=== PATIENT | female | born 1950 | race Two or more races ===

== ENCOUNTER 2022-09-23 21:32 | Inpatient (IN) | payer OTHER ==
[~2022-09-23] VITALS: Ht 162.6 cm; Wt 85.0 kg
[2022-09-23 22:36] LABS: Lactic Acid w/Reflex 3.6 mmol/L (0.4-2.0)
[2022-09-23 22:40] LABS: Basophils # (auto) 0.1 10 ^3/uL (0-0.2); Basophils % (auto) 0.5 % (0.0-2.0); Eosinophils # (auto) 0 10 ^3/uL (0-0.8); Eosinophils % (auto) 0.1 % (0.0-7.0); Hematocrit 47.6 % (36.0-46.0); Hemoglobin 15.3 g/dL (12.2-16.2); Lymphocytes # (auto) 1.2 10 ^3/uL (0.4-5.4); Lymphocytes % (auto) 7.8 % (10.0-50.0); Mean Corpuscular Hemoglobin 31.4 pg (28.0-32.0); Mean Corpuscular Hgb Conc. 32.1 g/dL (32.0-36.0); Monocytes # (auto) 0.9 10 ^3/uL (0-1.3); Monocytes % (auto) 5.6 % (0.0-12.0); Neutrophils # (auto) 13.1 10 ^3/uL (1.6-8.6); Nucleated Red Blood Cells % 0.1 %; Red Blood Cells 4.85 10^6/uL (4.0-5.20); Red Cell Distribution Width 15.4 % (11.8-14.3); White Blood Cell 15.2 10^3/uL (4.4-10.8)
[2022-09-23 22:41] LABS: Albumin 3.8 g/dL (3.4-5.0); Calcium 8.7 mg/dL (8.5-10.1)
[2022-09-23 22:44] LABS: Bilirubin, Total 0.5 mg/dL (0.2-1.0); Total Protein 8.1 g/dL (6.4-8.2)
[2022-09-23 22:50] VITALS: PULSE 74; RESP 16; O2SAT 95
[2022-09-23] MEDS ORDERED: PIPERACILLIN-TAZOB 2.25GM 50 ML IV ONE (23:15)
[2022-09-23] MEDS ORDERED: SODIUM CHLORIDE 0.9% 1,000 ML IV ONE (23:15)
[2022-09-23 23:33] LABS: Calcium 8.8 mg/dL (8.5-10.1)
[2022-09-23 23:37] LABS: Potassium 5.8 mmol/L (3.5-5.1)
[2022-09-23] MEDS: SODIUM CHLORIDE 0.9% 1,000 ML IV SCH (23:45)
[2022-09-24] MEDS ORDERED: ALBUTEROL SULF 2.5 MG/0.5ML(0.5%) NEB SOLN NEB ONE
[2022-09-24] MEDS ORDERED: DEXTROSE (50%) 50ML SYRG IV ONE
[2022-09-24] MEDS ORDERED: InsuLIN REG 1unit/0.01ml Soln (100units/ml) IV ONE
[2022-09-24] MEDS ORDERED: ONDANSETRON HCL 4 MG/2 ML VIAL IV PRN (00:45)
[2022-09-24] MEDS ORDERED: MORPHINE SULFATE INJ 2 MG/ml SYRG IV PRN (00:45)
[2022-09-24] MEDS ORDERED: SODIUM ZIRCONIUM CYCL 10 GM PAK PO ONE (00:45)
[2022-09-24] MEDS ORDERED: SODIUM CHLORIDE 0.9% 1,000 ML IV ONE (00:45)
[2022-09-24] MEDS ORDERED: NITROGLYCERIN 0.4 MG SL TAB SL PRN (00:45)
[2022-09-24] MEDS ORDERED: cefTRIAXone 1GM/50ML D5W 50 ML IV ONE (00:45)
[2022-09-24 01:31] LABS: Urine Amorphous Crystal MOD /hpf (None Seen); Urine Bacteria NONE SEEN /hpf (None Seen); Urine Blood 1+ /uL (Negative); Urine Mucus FEW (None Seen); Urine Specific Gravity 1.017 (1.001-1.035); Urine WBC 842 /hpf (0 - 5); Urine WBC Clumps PRESENT /hpf (None Seen)
[2022-09-24 02:06] LABS: Alcohol, Urine < 3.0 mg/dL (0-10); Benzodiazephine Screen, Urine NEGATIVE (NEGATIVE); Cocaine Screen, Urine NEGATIVE (NEGATIVE)
[2022-09-24 02:08] LABS: Amphetamine Screen, Urine NEGATIVE (NEGATIVE); Barbiturate Scree,Urine NEGATIVE (NEGATIVE); Cannabinoid Screen, Urine NEGATIVE (NEGATIVE); Opiate Scree,Urine NEGATIVE (NEGATIVE); Phencyclidine Screen, Urine NEGATIVE (NEGATIVE)
[2022-09-24] MEDS ORDERED: FUROSEMIDE 20 MG/2 ML VIAL IV ONE (05:00)
[2022-09-24 06:56] LABS: Basophils # (auto) 0.1 10 ^3/uL (0-0.2); Basophils % (auto) 0.6 % (0.0-2.0); Eosinophils # (auto) 0 10 ^3/uL (0-0.8); Hematocrit 46.5 % (36.0-46.0); Hemoglobin 14.7 g/dL (12.2-16.2); Lymphocytes # (auto) 1.5 10 ^3/uL (0.4-5.4); Lymphocytes % (auto) 9.5 % (10.0-50.0); Mean Corpuscular Hemoglobin 31.2 pg (28.0-32.0); Mean Corpuscular Hgb Conc. 31.6 g/dL (32.0-36.0); Mean Corpuscular Volume 98.7 fL (80.0-100.0); Monocytes # (auto) 0.8 10 ^3/uL (0-1.3); Monocytes % (auto) 5.3 % (0.0-12.0); Neutrophils % (auto) 84.6 % (37.0-80.0); Nucleated Red Blood Cells % 0.1 %; Red Blood Cells 4.71 10^6/uL (4.0-5.20); Red Cell Distribution Width 15.7 % (11.8-14.3); White Blood Cell 15.3 10^3/uL (4.4-10.8)
[2022-09-24 07:30] LABS: Albumin 3.5 g/dL (3.4-5.0); Calcium 7.8 mg/dL (8.5-10.1); Potassium 5.1 mmol/L (3.5-5.1)
[2022-09-24 07:35] LABS: Bilirubin, Total 0.4 mg/dL (0.2-1.0); Total Protein 7.5 g/dL (6.4-8.2)
[2022-09-24 07:40] LABS: BUN/Creatinine Ratio 15.3 (10.0-20.0)
[2022-09-24] MEDS: SODIUM CHLORIDE 0.9% 1,000 ML IV SCH ×2 (07:49→14:15)
[2022-09-24 08:30] VITALS: PULSE 84; RESP 14; O2SAT 92
[2022-09-24] MEDS: cefTRIAXone 1GM/50ML D5W 50 ML IV SCH (09:10)
[2022-09-24] MEDS ORDERED: PANTOPRAZOLE 40 MG TAB PO SCH (10:00)
[2022-09-24 19:29] VITALS: PULSE 88; RESP 16; O2SAT 95
[2022-09-24 21:14] VITALS: PULSE 90
[2022-09-24 22:21] VITALS: BP 127/54; PULSE 90; RESP 21; TEMP 99.4; O2SAT 94
[2022-09-25] MEDS: SODIUM CHLORIDE 0.9% 1,000 ML IV SCH (03:30)
[2022-09-25 05:00] VITALS: BP 94/46; PULSE 93; RESP 16; TEMP 98.5; O2SAT 95
[2022-09-25 06:55] LABS: BUN/Creatinine Ratio 25.9 (10.0-20.0); Calcium 8.2 mg/dL (8.5-10.1); Potassium 4.4 mmol/L (3.5-5.1)
[2022-09-25] MEDS ORDERED: VENL1TAB99 PO (07:03)
[2022-09-25] MEDS ORDERED: DICL75TA3 PO (07:03)
[2022-09-25] MEDS ORDERED: LISI-275 PO (07:03)
[2022-09-25 08:00] VITALS: BP 118/73; PULSE 60; PULSE 74; PULSE 85; RESP 17; TEMP 97.6
[2022-09-25 08:30] VITALS: BP 123/52; PULSE 74; RESP 19; TEMP 97.6; O2SAT 94
[2022-09-25] MEDS: cefTRIAXone 1GM/50ML D5W 50 ML IV SCH (08:45)
[2022-09-25 13:06] LABS: Basophils # (auto) 0.1 10 ^3/uL (0-0.2); Basophils % (auto) 0.5 % (0.0-2.0); Eosinophils # (auto) 0 10 ^3/uL (0-0.8); Hemoglobin 13.4 g/dL (12.2-16.2); Lymphocytes # (auto) 1.4 10 ^3/uL (0.4-5.4); Lymphocytes % (auto) 10.4 % (10.0-50.0); Mean Corpuscular Hemoglobin 31.3 pg (28.0-32.0); Mean Corpuscular Volume 97.8 fL (80.0-100.0); Monocytes # (auto) 0.9 10 ^3/uL (0-1.3); Monocytes % (auto) 6.9 % (0.0-12.0); Neutrophils # (auto) 10.8 10 ^3/uL (1.6-8.6); Neutrophils % (auto) 82.2 % (37.0-80.0); Red Blood Cells 4.29 10^6/uL (4.0-5.20); Red Cell Distribution Width 15.5 % (11.8-14.3); White Blood Cell 13.2 10^3/uL (4.4-10.8)
[2022-09-25] MEDS: SOD CHL 0.45% 1,000 ML IV SCH ×2 (16:10→19:30)
[2022-09-25 16:59] VITALS: BP 126/79; PULSE 79; RESP 20; TEMP 98.3; O2SAT 94
[2022-09-25 20:00] VITALS: PULSE 85
[2022-09-25 22:00] VITALS: BP 115/50; PULSE 85; RESP 16; TEMP 97.6; O2SAT 98
[2022-09-26] MEDS ORDERED: VENLAFAXINE HCL 37.5MG TABLET ONE ×3 (01:04→01:10)
[2022-09-26] MEDS: VENLAFAXINE HCL 37.5MG TABLET PO SCH ×3 (01:15→21:21)
[2022-09-26 05:00] VITALS: BP 122/47; PULSE 88; RESP 18; TEMP 99; O2SAT 97
[2022-09-26] MEDS: SOD CHL 0.45% 1,000 ML IV SCH (05:30)
[2022-09-26 06:31] LABS: Potassium 3.9 mmol/L (3.5-5.1)
[2022-09-26 06:35] LABS: Basophils # (auto) 0.1 10 ^3/uL (0-0.2); Basophils % (auto) 0.7 % (0.0-2.0); Eosinophils # (auto) 0.3 10 ^3/uL (0-0.8); Eosinophils % (auto) 2.1 % (0.0-7.0); Hematocrit 38.4 % (36.0-46.0); Hemoglobin 12.3 g/dL (12.2-16.2); Lymphocytes % (auto) 13.1 % (10.0-50.0); Mean Corpuscular Hemoglobin 31.2 pg (28.0-32.0); Mean Corpuscular Hgb Conc. 32.1 g/dL (32.0-36.0); Monocytes # (auto) 0.6 10 ^3/uL (0-1.3); Monocytes % (auto) 3.9 % (0.0-12.0); Neutrophils # (auto) 12.4 10 ^3/uL (1.6-8.6); Neutrophils % (auto) 80.2 % (37.0-80.0); Nucleated Red Blood Cells % 0.1 %; Red Blood Cells 3.95 10^6/uL (4.0-5.20); Red Cell Distribution Width 15.4 % (11.8-14.3); White Blood Cell 15.4 10^3/uL (4.4-10.8)
[2022-09-26 06:42] LABS: Albumin 2.6 g/dL (3.4-5.0); BUN/Creatinine Ratio 32.3 (10.0-20.0); Bilirubin, Total 0.4 mg/dL (0.2-1.0); Calcium 8.3 mg/dL (8.5-10.1); Total Protein 6.5 g/dL (6.4-8.2)
[2022-09-26 08:00] VITALS: PULSE 74; PULSE 79
[2022-09-26] MEDS: cefTRIAXone 1GM/50ML D5W 50 ML IV SCH (08:53)
[2022-09-26 09:00] VITALS: BP 128/58; PULSE 79; RESP 16; TEMP 98.4; O2SAT 95
[2022-09-26 20:00] VITALS: PULSE 63; O2SAT 90
[2022-09-26 22:00] VITALS: BP 138/57; PULSE 83; RESP 18; TEMP 98.3; O2SAT 90
[2022-09-27 00:25] VITALS: PULSE 97
[2022-09-27 05:00] VITALS: BP 125/52; PULSE 69; RESP 18; TEMP 98.2; O2SAT 92
[2022-09-27 05:47] LABS: Basophils # (auto) 0.1 10 ^3/uL (0-0.2); Eosinophils # (auto) 0.5 10 ^3/uL (0-0.8); Eosinophils % (auto) 3.2 % (0.0-7.0); Hematocrit 38.8 % (36.0-46.0); Hemoglobin 12.6 g/dL (12.2-16.2); Lymphocytes # (auto) 1.9 10 ^3/uL (0.4-5.4); Lymphocytes % (auto) 12.3 % (10.0-50.0); Mean Corpuscular Hemoglobin 31.1 pg (28.0-32.0); Mean Corpuscular Hgb Conc. 32.6 g/dL (32.0-36.0); Mean Corpuscular Volume 95.5 fL (80.0-100.0); Monocytes # (auto) 0.5 10 ^3/uL (0-1.3); Monocytes % (auto) 3.3 % (0.0-12.0); Neutrophils # (auto) 12.2 10 ^3/uL (1.6-8.6); Neutrophils % (auto) 80.2 % (37.0-80.0); Red Blood Cells 4.06 10^6/uL (4.0-5.20); Red Cell Distribution Width 14.8 % (11.8-14.3); White Blood Cell 15.2 10^3/uL (4.4-10.8)
[2022-09-27 06:04] LABS: Albumin 2.5 g/dL (3.4-5.0); Calcium 8.4 mg/dL (8.5-10.1)
[2022-09-27 06:07] LABS: BUN/Creatinine Ratio 37.4 (10.0-20.0); Bilirubin, Total 0.2 mg/dL (0.2-1.0); Total Protein 6.4 g/dL (6.4-8.2)
[2022-09-27 08:00] VITALS: PULSE 71; PULSE 89; RESP 18; O2SAT 90
[2022-09-27 09:00] VITALS: BP 129/70; PULSE 66; RESP 14; TEMP 98.3; O2SAT 93
[2022-09-27] MEDS: cefTRIAXone 1GM/50ML D5W 50 ML IV SCH (09:09)
[2022-09-27] MEDS: VENLAFAXINE HCL 37.5MG TABLET PO SCH (11:39)
[2022-09-27 13:00] VITALS: BP 159/63; PULSE 70; RESP 16; TEMP 97.9; O2SAT 98
[2022-09-27] MEDS ORDERED: CEPH500C PO (14:41)
[2022-09-27] MEDS ORDERED: AMLO1TAB22 PO (14:42)
[2022-09-27 17:00] VITALS: BP 151/57; PULSE 77; RESP 14; TEMP 98.2; O2SAT 93
== END 2022-09-27 18:35 | disposition left against medical advice (07) | DRG 682 ==
LOC: EDBD 21:32 → ER 21:35 → TELE 09-24 00:39 → TELE-CENTR 09-24 21:18
PROVIDERS: ADMIT Internal Medicine; ATTEND Internal Medicine
DX: N17.0 Acute kidney failure with tubular necrosis (principal); G92.8 Other toxic encephalopathy; N39.0 Urinary tract infection, site not specified; E87.20 Acidosis, unspecified; E87.0 Hyperosmolality and hypernatremia; E87.5 Hyperkalemia; I95.9 Hypotension, unspecified; F32.A Depression, unspecified; E86.0 Dehydration; E87.8 Other disorders of electrolyte and fluid balance, not elsewhere classified; F17.210 Nicotine dependence, cigarettes, uncomplicated; Z53.29 Procedure and treatment not carried out because of patient's decision for other reasons; Z20.822 Contact with and (suspected) exposure to COVID-19; I12.9 Hypertensive chronic kidney disease with stage 1 through stage 4 chronic kidney disease, or unspecified chronic kidney disease; R74.01 Elevation of levels of liver transaminase levels; N18.32 Chronic kidney disease, stage 3b; Z79.899 Other long term (current) drug therapy
CPT/HCPCS: 36415; 70450; 71045; 74176; 78582; 80048; 80053; 80307; 80320; 81001; 82550; 82553; 83605; 83880; 84484; 85025; 85379; 87040; 93005; 93970; 94640; 96361; 96365; 96366; 96368; 96375; 97110; 97116; 97163; 97530; G0378; J0696; J1815; J2543

== ENCOUNTER 2023-03-24 20:36 | Emergency (ER) | payer OTHER ==
[~2023-03-24] VITALS: Ht 160 cm; Wt 86.0 kg
[~2023-03-24 20:36] MED LIST: AMLO1TAB22 PO; CEPH500C PO; DICL75TA3 PO; LISI-275 PO; VENL1TAB99 PO
[2023-03-24 21:53] LABS: Chloride 104 mmol/L (98-107); Potassium 3.9 mmol/L (3.5-5.1); Sodium 136 mmol/L (136-145)
[2023-03-24 21:54] LABS: Anion Gap 9 (5-15); Carbon Dioxide 23 mmol/L (20-30)
[2023-03-24 21:55] LABS: Calcium 10.2 mg/dL (8.5-10.1)
[2023-03-24 21:59] LABS: Basophils # (auto) 0.1 10 ^3/uL (0-0.2); Basophils % (auto) 0.9 % (0.0-2.0); Eosinophils # (auto) 0 10 ^3/uL (0-0.8); Eosinophils % (auto) 0.1 % (0.0-7.0); Glucose 143 mg/dL (74-106); Hematocrit 45.6 % (36.0-46.0); Hemoglobin 15.3 g/dL (12.2-16.2); Lymphocytes # (auto) 0.6 10 ^3/uL (0.4-5.4); Lymphocytes % (auto) 5.1 % (10.0-50.0); Mean Corpuscular Hemoglobin 31.1 pg (28.0-32.0); Mean Corpuscular Hgb Conc. 33.6 g/dL (32.0-36.0); Mean Corpuscular Volume 92.7 fL (80.0-100.0); Monocytes # (auto) 0.1 10 ^3/uL (0-1.3); Monocytes % (auto) 1.1 % (0.0-12.0); Neutrophils # (auto) 11.6 10 ^3/uL (1.6-8.6); Neutrophils % (auto) 92.8 % (37.0-80.0); Nucleated Red Blood Cells % 0.1 %; Red Blood Cells 4.92 10^6/uL (4.0-5.20); Red Cell Distribution Width 13.8 % (11.8-14.3); White Blood Cell 12.4 10^3/uL (4.4-10.8)
[2023-03-24 22:00] LABS: BUN/Creatinine Ratio 20.4 (10.0-20.0); Blood Urea Nitrogen 22 mg/dL (9-23)
[2023-03-24 22:30] VITALS: PULSE 87; RESP 26; O2SAT 92
[2023-03-24] MEDS ORDERED: CEPH500C PO (23:38)
[2023-03-24] MEDS ORDERED: cefTRIAXone SOD 1,000 MG VL IV ONE (23:45)
[2023-03-25] VITALS: BP 127/57; PULSE 86; RESP 29; TEMP 98; O2SAT 93
== END 2023-03-25 01:15 | disposition home or self-care (01) ==
LOC: ER 20:36 → EDBD 20:36 → ER 03-25 01:15
DX: N39.0 Urinary tract infection, site not specified (principal); I10 Essential (primary) hypertension; J44.9 Chronic obstructive pulmonary disease, unspecified; Z79.899 Other long term (current) drug therapy
CPT/HCPCS: 36415; 80048; 81002; 83605; 85025; 87040; 93005; 96374; 99284; J0696

== ENCOUNTER 2024-10-18 06:32 | Inpatient (IN) | payer OTHER ==
[~2024-10-18] VITALS: Ht 149.9 cm; Wt 78.2 kg
[2024-10-18] VITALS (8 sets, daily range): BP systolic 114–129; BP diastolic 45–88; PULSE 52–58; RESP 9–18; TEMP 97.9; O2SAT 95–99
[~2024-10-18 06:32] MED LIST changes: +ACET1CAP14 PO; -AMLO1TAB22 PO; -CEPH500C PO; +CRAN125T PO; -DICL75TA3 PO; +IBU600T PO; -LISI-275 PO; +SACC1CAP3 PO; +TRIA50CA43 PO; -VENL1TAB99 PO; +VENL37.572 PO
[2024-10-18] MEDS ORDERED: PROPOFOL 10 MG/ML 20 ML IV ONE (07:25)
[2024-10-18] MEDS ORDERED: LIDOCAINE 1% INJ PF 5ML AMP ONE (07:25)
[2024-10-18] MEDS ORDERED: SODIUM CHLORIDE LOCK 10 ML ONE (07:25)
[2024-10-18] MEDS ORDERED: BUPIVACAINE/DEXTROSE MPF 0.75% 2 ML AMP IT ONE (07:25)
[2024-10-18] MEDS ORDERED: fentaNYL CITRATE 100 MCG/2 ML VL ONE (07:25)
[2024-10-18] MEDS ORDERED: MORPHINE SULF PF 5 MG/10 ML VIAL ONE (07:25)
[2024-10-18] MEDS ORDERED: MIDAZOLAM HCL 2MG/2ML 2ml VIAL (1mg/ml) ONE (07:25)
[2024-10-18] MEDS ORDERED: ONDANSETRON HCL 4 MG/2 ML VIAL ONE (07:25)
[2024-10-18] MEDS ORDERED: KETAMINE 50mg/ML 1ml syringe ONE (07:26)
[2024-10-18] MEDS ORDERED: MORPHINE SULFATE INJ 2 MG/ml SYRG IV PRN ×2 (07:30→10:00)
[2024-10-18] MEDS ORDERED: NITROGLYCERIN 0.4 MG SL TAB SL PRN (07:30)
[2024-10-18] MEDS ORDERED: ceFAZolin 1GM/50ML 50 ML IV SCH (07:30)
[2024-10-18] MEDS ORDERED: ONDANSETRON HCL 4 MG/2 ML VIAL IV PRN (07:30)
[2024-10-18] MEDS ORDERED: HYDROmorphone HCL 2 MG/ML VL/or syr IV PRN ×3 (07:30→10:00)
--- NOTE | 2024-10-18 07:33 | DVHOP2 ---
Operative Report - 2 Report Details Date: 10/18/24 Preop Diagnosis: Left hip osteoarthritis Postop Diagnosis: Left hip osteoarthritis Surgeon: Sarabjit Herrmann MD Car Cleaning Supervisor: Marcos VILLATORO Anesthesiologist: Rajan ROBBINS Anesthesia: Regional Implant: [employer] Consent: The patient was informed of the risks and benefits of the procedure. These include but are not limited to complications of anesthesia, postoperative infection, incomplete relief of symptoms, recurrence of symptoms, damage to blood vessels, nerves and tendons, deep venous thrombosis, pulmonary embolism and possible need for repeat surgery in the future. Estimated Blood Loss: 300 cc Name of Procedure Performed Left total hip arthroplasty using computer navigation Procedure Details Procedure Details: FINDINGS: Extensive degenerative disease with grade IV changes INDICATION: This patient has failed non-operative treatments for hip arthritis and is now indicated for a total hip replacement. Preoperatively in the waiting area as well as in the office, I had a long discussion with the patient regarding the plan, the expected outcome, the risks, benefits, and alternatives of surgery. The risks include, but are not limited to, infection (which may require future surgery and removal of implants) , bleeding (which may require a transfusion), damage to nerves, arteries, veins, tendons, muscles and other adjacent structures. Also discussed the possibilities of dislocation, leg-length discrepancy, intraoperative fractures, implant loosening, heterotopic bone formation, and revision for variety of reasons, and medical complications etc. This was discussed at length and consent has been obtained. DESCRIPTION OF PROCEDURE: In the preoperative holding area, the consent was reviewed and the appropriate extremity was verified by the patient and marked with my initials. The patient was then transferred to the operating theatre. Appropriate anesthetia was induced. All bony prominences were well padded. A time out was performed verifying the side and site of surgery according to standard protocol. Preoperative antibiotics were given. Tranexamic acid was given. The patient was then placed in the lateral decubitus position and fixed with rigid pelvic fixation. All bony prominences were well padded and an axillary roll was placed. The affected hip area was then prepped and draped in the usual sterile fashion. Using an 11-blade, three stab incisions were made over the iliac crest. Two threaded guide pins were inserted into the crest confirming to be in bone. The pelvic array was attached to the pins and tightened. We made a standard posterolateral incision sharply through the skin and carried our dissection down through subcutaneous tissue to the underlying fascia achieving hemostasis where necessary. We incised the fascia in line with our incision. We identified and protected the sciatic nerve. We took down the external rotators and hip capsule from their insertion into the greater trochanter, tagged them and retracted them posteriorly for further protection of the sciatic nerve. A check point was placed into the greater trochanter and the hip center and leg length length were registered. We then dislocated the femoral head and performed an osteotomy of the femoral neck in accordance with our pre-operative plan. The labrum was excised with a long-handle knife, and we exposed the acetabular rim and cotyloid fossa. We then reamed up to our final size in accordance with the preoperative plan. We copiously irrigated and then impacted the final cup into position. We confirmed the position with the robotic navigation guidance. We placed acetabular dome screws into the posterior-superior quadrant in the usual fashion. We irrigated the cup and impacted the liner, checking to make sure it was well seated. Attention was then turned to the femur. We used a box osteotome followed by a canal finder to gain entry to the canal. Intramedullary contents were suctioned and care was taken to ensure they did not touch the tissues. We sequentially reamed until good cortical contact, then broached up to out final size. We trialed with the appropriate femoral neck and head and reduced the hip. The hip was taken through a full range of motion. The hip soft tissues were examined in extension and external rotation, the anterior capsule and IT band were palpated, and combined anteversion was determined to be 40 degrees. The hip was stable at maximum flexion, at 90 degrees of flexion and 45 degrees of internal rotation and the position of sleep. Leg lengths were restored as shown using the computer navigation, and the trial LTC matched preoperative and intraoperative templating. The hip was then dislocated and trial components removed. We copiously irrigated the wound and impacted the final femoral stem into position. The femoral head was impacted onto a clean and dry trunion and confirmed to be sea addison. The hip was reduced ensuring to tissues in the acetabular cup. We again brought it through a full functional range of motion and there was no evidence for dislocation, instability, or impingement. The checkpoint was removed. A dilute betadine solution (17.5mL in 500mL saline) was used to wash the joint and left to sit for 3 minutes. This was then irrigated out with copious amounts of pulse lavage. We sprinkled 1g vancomycin powder below the fascia and 1g above the fascia. We copiously irrigated the wound and soft tissues. The short external rotators and capsule were repaired to the greater trochanter through drill holes, and the quadratus was repaired. We palpated the sciatic nerve in continuity without tension. The fascia was closed with vicryl and a barbed suture. We closed over the fascia with vicryl suture and re-approximated the skin with isidro. A sterile dressing was placed. We returned the patient to the supine position. We verified all lower extremity compartments were soft and compressible and that we had intact distal pulses and checked our leg length mandaen. The patient was then transferred to the recovery room in stable condition. Condition Good Disposition Still a Patient SARABJIT HERRMANN MD Oct 18, 2024 07:33
[2024-10-18] MEDS: PREGABALIN CAPSULE 75 MG CAP PO ONE (07:45)
[2024-10-18] MEDS: CELECOXIB 100 MG CAP PO ONE (07:45)
[2024-10-18] MEDS: ACETAMINOPHEN IV 1000 MG/100ML (10MG/ML) IV ONE (07:45)
[2024-10-18] MEDS: CEFEPIME 1GM/50ML 50 ML IV SCH (09:00)
[2024-10-18] MEDS ORDERED: SUGAMMADEX 200mg/2ml Vial (100MG/ML) IV ONE (09:03)
[2024-10-18] MEDS: KETOROLAC TROMETH 30 MG/ML 1ML VIAL ONE ×2 (09:30→10:29)
[2024-10-18] MEDS: BUPIVACAINE 0.25% INJ 50ML VIAL ONE (09:30)
[2024-10-18] MEDS: MORPHINE SULF PF 5 MG/10 ML VIAL ONE (09:30)
[2024-10-18] MEDS: VANCOMYCIN HCL 1000 MG VL ONE (09:40)
[2024-10-18] MEDS: DOCUSATE SOD 100 MG CAP PO SCH (10:00)
[2024-10-18] MEDS ORDERED: NALOXONE HCL 0.4 MG/ML VIAL IV PRN ×2 (10:00)
[2024-10-18] MEDS ORDERED: diphenhdrAMINE HCL 50 MG/1 ML VL IV PRN (10:00)
[2024-10-18] MEDS ORDERED: MORPHINE SULFATE 4 MG/ML SYR/VIAL IV PRN (10:00)
[2024-10-18] MEDS: ACETAMINOPHEN IV 100 ML IV ONE (10:27)
[2024-10-18] MEDS: ceFAZolin 2 GM/D5W50ml 50 ML IV ONE ×2 (10:27)
[2024-10-18] MEDS: PREGABALIN CAPSULE 75 MG CAP ONE (10:28)
[2024-10-18] MEDS: TRANEXAMIC ACID 20 ML ONE ×2 (10:28→10:29)
[2024-10-18] MEDS: CELECOXIB 100 MG CAP ONE (10:28)
[2024-10-18] MEDS: TETRACAINE 1% INJ 2 ML VIAL IJ ONE (10:28)
[2024-10-18] MEDS: CEFEPIME 1GM/50ML 50 ML IV ONE (10:29)
[2024-10-18] MEDS: LACTATED RINGER'S 1,000 ML IV SCH (10:42)
--- NOTE | 2024-10-18 11:43 | DVH ---
EXAM: XY PELVIS AP CLINICAL INDICATION: sp Left RAUL TECHNIQUE: XY PELVIS AP Comparison: None FINDINGS/IMPRESSION: There is no evidence of acute fracture or dislocation. Left total hip artrhoplasty. The alignment is anatomical. There is no radiopaque foreign body.
[2024-10-18] MEDS: NALOXONE HCL 0.4 MG/ML VIAL IV PRN (14:54)
[2024-10-18] MEDS: NALOXONE HCL 0.4 MG/ML VIAL ONE (15:14)
[2024-10-18] MEDS: SODIUM CHLOR 0.9% PF (SALINE LOCK) 10ML VIAL/SYR IV SCH (15:15)
[2024-10-18] MEDS: ceFAZolin 1GM/50ML 50 ML IV SCH (15:20)
--- NOTE | 2024-10-18 16:14 | DVHINCON2 ---
Date Seen: Oct 18, 2024 Referring Physician Orthopedics surgeon. Reason for Consultation Medical management. History of Present Illness To be noted patient's underwent left hip total hip arthroplasty currently still very drowsy from general anesthesia. Most of the history obtained from daughter in the lobby. 74-year-old female with a known history of left hip degenerative joint disease, hypertension, COPD, anxiety and depression disorder presented to the hospital for elective procedure. Patient is status post left total hip arthroplasty. Patient initially was given spinal anesthesia then converted to general anesthesia as well and still very drowsy. Currently on face mask. Past Medical History COPD Hypertension Chronic tobacco use disorder Anxiety and depression disorder Past Surgical History Status post left total hip arthroplasty Family History: Patient reports no known family medical history. Allergies: Coded Allergies: NO KNOWN ALLERGIES (Unverified , 09/23/22) Home Meds Reported Medications Acetaminophen (Tylenol) 325 Mg Cap, 325 MG PO, CAP 10/15/24 Ibuprofen Micronized (MOTRIN TABLET) 600 Mg Tb, 600 MG PO TID PRN for prn, #40 TAB *Black box warning-NSAIDS can increase risk of [place] & hypertension, GI irritation, ulceration, bleed, perferation. Do not use post cardiac surgery. Use short duration/lowest effective dose. 10/15/24 Cranberry Extract (CRANBERRY) 125 Mg Tab, 125 MG PO, TAB 10/15/24 Yeast (S. Boulardii)(S. Cerevi (Probiotic) 250 Mg Cap, 250 MG PO, CAP 10/15/24 Triamterene (Triamterene) 50 Mg Cap, 50 MG PO, CAP 10/15/24 Venlafaxine Hydrochloride (Effexor Xr) 37.5 Mg Cap, 1 CAP PO DAILY, #30 CAP 10/15/24 Current Medications Current Medications Medications (Trade) Dose Ordered Sig/Leyla Route PRN Reason Start Time Stop Time Status Last Admin Cefepime HCl 50 ml @ 12.5 mls/hr DAILY IV 10/18/24 10:00 10/18/24 09:00 Lactated Ringer's 1,000 ml @ 100 mls/hr Q10H IV 10/18/24 07:30 10/18/24 10:42 Sodium Chloride (Saline Lock Ns) 10 ml Q8HR IV 10/18/24 14:00 10/18/24 15:15 Cefazolin Sodium 50 ml @ 50 mls/hr Q6H IV 10/18/24 07:30 10/18/24 10:27 DC Acetaminophen/ Hydrocodone Bitart ([place] 5/325MG Tab) 1 tab Q4HP PRN PO MODERATE PAIN (4-6 PAIN SCALE) 10/18/24 07:30 Hydromorphone HCl (Dilaudid Injection) 1 mg Q2HP PRN IV SEVERE PAIN (7-10 PAIN SCALE) 10/18/24 07:30 Ondansetron HCl (Zofran) 4 mg Q6HP PRN IV NAUSEA / VOMITING 10/18/24 07:30 Docusate Sodium (Colace Capsule) 100 mg Q12HR PO 10/18/24 10:00 Nitroglycerin (Ntrostat Sublingual) 0.4 mg Q5MINP PRN SL FOR CHEST PAIN 10/18/24 07:30 Morphine Sulfate 2 mg Q30M PRN IV FOR CHEST PAIN 10/18/24 07:30 Aspirin 81 mg BID PO 10/19/24 10:00 Naloxone HCl (Narcan) 0.4 mg Q10M PRN IV NARCOTIC REVERSAL 10/18/24 10:00 10/18/24 10:34 DC Hydromorphone HCl (Dilaudid Injection) 0.5 mg Q10M PRN IV SEVERE PAIN (7-10 PAIN SCALE) 10/18/24 10:00 10/18/24 10:41 DC Morphine Sulfate 2 mg Q4H PRN IV BREAKTHRU PAIN SCALE 7-10 10/18/24 10:00 10/18/24 14:01 DC Hydromorphone HCl (Dilaudid Injection) 0.25 mg Q10M PRN IV MODERATE PAIN (4-6 PAIN SCALE) 10/18/24 10:00 10/18/24 10:34 DC Morphine Sulfate 1 mg Q30M PRN IV SEVERE PAIN (7-10 PAIN SCALE) 10/18/24 10:00 10/18/24 12:01 DC Diphenhydramine HCl (Benadryl Injection) 25 mg Q4HP PRN IV FOR ITCHING 10/18/24 10:00 Naloxone HCl (Narcan) 0.2 mg Q5M PRN IV For respirations < than 10/min 10/18/24 10:00 10/18/24 10:34 DC Cefazolin Sodium 50 ml @ 50 mls/hr Q6H IV 10/18/24 14:00 10/19/24 02:59 10/18/24 15:20 Naloxone HCl (Narcan) 0.08 mg Q5MIN PRN IV BRADYPNEA 10/18/24 14:54 10/18/24 17:00 10/18/24 15:23 Review of Systems Twelve review of system can not be obtained as patient is currently very drowsy. Vital Signs Vital Signs Date Time Temp Pulse Resp B/P (MAP) Pulse Ox O2 Delivery O2 Flow Rate FiO2 10/18/24 11:40 53 10 108/36 (60) 98 10/18/24 09:54 97.7 97.7 10/18/24 09:54 Mask 6.0 97 Physical Exam HEENT pupils are reactive Neck is supple CV is S1-S2 regular rate and rhythm Respiratory diminished breath sounds bases GI positive bowel sound Extremity no edema [employer] patient is very drowsy currently does not follow commands was seen in recovery. Assessment 74-year-old female with a known history of COPD, chronic tobacco use disorder, hypertension, anxiety and depression disorder who was brought in by Orthopedics for elective surgery. 1. Hypertension controlled 2. Acute hypoxic respiratory failure currently on face mask postop 3. COPD not in exacerbation 4. Chronic tobacco use disorder 5. Anxiety and depression disorder 6. Left hip degenerative joint disease status post total hip arthroplasty -continue pain meds as needed, O2 supplementation, DVT GI prophylaxis, orthopedics follow up. -plan of care discussed with the patient's daughter in the lobby and recovery nurse at bedside. Plan discussed with: Daughter, Other (Patient's bedside RN.) Date of Service: Oct 18, 2024 Billing Provider: MATY NAGY MD Common Visit Codes: CONSULT ONLY MATY NAGY MD Oct 18, 2024 16:14
[2024-10-18] MEDS: FLUMAZENIL 0.1 MG/ML INJ 10ML MDV IV ONE ×2 (16:41)
[2024-10-18 20:47] LABS: Urine Protein, UAD TRACE (Negative)
[2024-10-19] VITALS (14 sets, daily range): BP systolic 97–143; BP diastolic 43–88; PULSE 52–77; RESP 13–20; TEMP 97.5–99.2; O2SAT 90–98
[2024-10-19] MEDS: ceFAZolin 1GM/50ML 50 ML IV SCH (05:09)
[2024-10-19 06:45] LABS: Hematocrit 36.5 % (36.0-46.0); Hemoglobin 12.6 g/dL (12.2-16.2); Mean Corpuscular Hemoglobin 32.3 pg (28.0-32.0); Mean Corpuscular Volume 93.4 fL (80.0-100.0); Nucleated Red Blood Cells % 0.0 %
[2024-10-19 06:53] LABS: Albumin 3.6 g/dL (3.2-4.8); Anion Gap 8 (5-15); BUN/Creatinine Ratio 20.7 (10.0-20.0); Calcium 8.7 mg/dL (8.7-10.4); Carbon Dioxide 25 mmol/L (20-31); Glucose 94 mg/dL (74-106); Potassium 4.5 mmol/L (3.5-5.1); Sodium 140 mmol/L (136-145); Total Protein 6.2 g/dL (5.7-8.2)
[2024-10-19 06:54] LABS: Bilirubin, Total 0.5 mg/dL (0.2-1.0)
[2024-10-19 07:07] LABS: Alanine Aminotransferase 129 U/L (7-40); Alkaline Phosphatase 139 U/L (46-116); Blood Urea Nitrogen 24 mg/dL (9-23); Chloride 107 mmol/L (98-107)
--- NOTE | 2024-10-19 07:51 | DVHDS2 ---
Discharge Summary Date of Admission Oct 18, 2024 at 07:25 Date of Discharge: Oct 19, 2024 Wounds: If the wound is draining please change the gauze pad on the wound until it stops. If drainage persists past 10 days please notify our office. If there is a sticky gel dressing over your wound, you may leave this in place for as long as it is clean and dry. If it becomes loose or causes skin irritation, it is OK to remove it and place clean gauze over your wound. 1. You might notice some bruising around the surgical site, this is normal. 2. Check your temperature on a daily basis. Please note that a low-grade temp below 101 is not uncommon after surgery especially during the first 3 days. Notify the office if your temperature spikes above 101.5 after the 3rd post- operative date. 3. Many patients experience significant swelling in the thigh, this may extend below the knee and sometimes to the ankle. Swelling increases during the first week and subsides during the following week. 4. Provided you have been on a blood thinner since surgery and have been up and about at least three times per day, the risk of a blood clot is low and this swelling is an expected part of recovery. It will largely or completely resolve by your first post-operative visit. 5. Seymour, if present, will be removed at 2 weeks during initial post-op visit. Labs/Diagnostic Data: Laboratory Results Test 10/19/24 05:28 10/18/24 21:00 10/18/24 20:21 White Blood Count 10.6 10^3/uL (4.4-10.8) Red Blood Count 3.91 10^6/uL (4.0-5.20) Hemoglobin 12.6 g/dL (12.2-16.2) Hematocrit 36.5 % (36.0-46.0) Mean Corpuscular Volume 93.4 fL (80.0-100.0) Mean Corpuscular Hemoglobin 32.3 pg (28.0-32.0) Mean Corpuscular Hemoglobin Concent 34.6 g/dL (32.0-36.0) Red Cell Distribution Width 13.6 % (11.8-14.3) Platelet Count 304 10^3/uL (140-450) Mean Platelet Volume 8.7 fL (6.9-10.8) Neutrophils (%) (Auto) 70.2 % (37.0-80.0) Lymphocytes (%) (Auto) 21.1 % (10.0-50.0) Monocytes (%) (Auto) 7.8 % (0.0-12.0) Eosinophils (%) (Auto) 0.3 % (0.0-7.0) Basophils (%) (Auto) 0.6 % (0.0-2.0) Neutrophils # (Auto) 7.5 10 ^3/uL (1.6-8.6) Lymphocytes # (Auto) 2.2 10 ^3/uL (0.4-5.4) Monocytes # (Auto) 0.8 10 ^3/uL (0-1.3) Eosinophils # (Auto) 0 10 ^3/uL (0-0.8) Basophils # (Auto) 0.1 10 ^3/uL (0-0.2) Nucleated Red Blood Cells 0.0 % Sodium Level 140 mmol/L (136-145) Potassium Level 4.5 mmol/L (3.5-5.1) Chloride Level 107 mmol/L (98-107) Carbon Dioxide Level 25 mmol/L (20-31) Anion Gap 8 (5-15) Blood Urea Nitrogen 24 mg/dL (9-23) Creatinine 1.16 mg/dL (0.550-1.02) Glomerular Filtration Rate Calc 50 mL/min (>90) BUN/Creatinine Ratio 20.7 (10.0-20.0) Serum Glucose 94 mg/dL (74-106) Calcium Level 8.7 mg/dL (8.7-10.4) Total Bilirubin 0.5 mg/dL (0.2-1.0) Aspartate Amino Transferase (AST) 153 U/L (13-40) Alanine Aminotransferase (ALT) 129 U/L (7-40) Alkaline Phosphatase 139 U/L (46-116) Total Protein 6.2 g/dL (5.7-8.2) Albumin 3.6 g/dL (3.2-4.8) B-Type Natriuretic Peptide 146.19 pg/mL (0-100) Urine Color Yellow (Yellow) Urine Clarity Turbid (Clear) Urine pH 5.5 (5.0-9.0) Urine Specific [place] 1.024 (1.001-1.035) Urine Protein Trace (Negative) Urine Ketones Trace (Negative) Urine Blood Negative /uL (Negative) Urine Nitrite Negative (Negative) Urine Bilirubin Negative (Negative) Urine Urobilinogen Normal mg/dL (Negative) Urine Leukocyte Esterase 1+ /uL (Negative) Urine RBC 1 /hpf (0 - 4) Urine Microscopic WBC 21 /HPF (0-5) Urine Squamous Epithelial Cells Few /hpf (<5) Urine Bacteria Few /hpf (None Seen) Urine Glucose Normal mg/dL (Normal) Other Laboratory Tests 10/19/24 05:28 Brief Hx & Hospital Course: s/p left total hip arthroplasty Condition at Discharge: Good Final Diagnosis/Problems List Left hip osteoarthritis Discharge Disposition: Care Home Facility Discharge Instruct/Medications Diet: Regular Activity: See Comment Activity comment: 1.You can bear as much weight as you tolerate on your hip unless specifically instructed otherwise. You may use the walking aid which you were discharged with and switch to a cane whenever you feel comfortable doing so. You should use an assistive device until you can walk comfortably without it. Keep in mind that every patient moves at their own speed of recovery so take your time. 2.A physical therapist will visit you at home. 3. Although guarantees against a dislocation do not exist, the hip was noted to be sufficiently stable in surgery. Below are motions that you should dischargenot do for 4-6 weeks, depending on the surgical approach used. If there are questions, please call the office. a.Bend forward past 90 degrees b.Sit on a regular low chair, couch, car seat etc... c.Cross your legs d.Use a regular low toilet seat. e.Sleep on your stomach or on either side. 3.High impact activity such as jumping, aerobics, tennis, and skiing are not permitted during the first 3 months after surgery. These activities can contribute to accelerated wear and should be done with caution after this time. Discuss this with your surgeon if you have questions. 4.Although a bath or whirlpool is NOT permitted during the first 2-3 weeks, you may shower as soon as you get home from the hospital provided you are able to keep your bandage clean and dry and there is no wound drainage. If you are unable to place a secured covering over your bandage bed bath/sponge bath may likely be the more appropriate option. 5.Swimming is not permitted until the wound is healed, which typically occurs approximately 3-4 weeks after surgery. Follow Up/Referral: 1.Driving is not permitted within the first 2 weeks. 2.Your first postoperative visit will take place 2weeks after discharge. Please call the office to arrange this appointment. 3.Antibiotic preventative treatment is required before dental or other invasive procedures. Please ask your surgeon about this at your first postoperative visit. Your hip replacement contains metal which may activate metal detectors. You may wish to carry a letter from your surgeon to communicate this to security personnel. If you experience chest pain, shortness of breath or severe painful calf swelling, go to the nearest emergency room to be evaluated. Please call our office once your situation is stabilized. Medications: 1.You will be discharged with pain medication, Aspirin as a blood thinner and sometimes an anti-inflammatory medication such as Celebrex or Mobic might be prescribed. Please follow the instructions regarding these medicines as provided by your nurse at the hospital. 2.Narcotic pain medication has side effects, including constipation. Please ensure you continue to take stool softeners (Colace, Senna) while taking your pain medication to help protect against constipation. Getting up and moving around at least a few times per day helps with this also. 3.Lovenox 40 Sq x 12 days followed by one regular strength 325 mg coated aspirin daily for 4 weeks after surgery. Then, take one baby aspirin, 81 mg daily for 6 weeks more. A major, yet preventable, complication of Orthopaedic Surgery is a blood clot (DVT). It is important not to miss any doses of this important medication. 4.You should restart all of your prescription medications once discharged unless specifically instructed otherwise. 5.Herbal supplements may be restarted 2 weeks after surgery. Scheduled Venlafaxine Hydrochloride (Effexor Xr), 1 CAP PO DAILY, (Reported) Scheduled PRN Ibuprofen Micronized (Motrin Tablet), 600 MG PO TID PRN for prn, (Reported) Miscellaneous Medications Acetaminophen (Tylenol), 325 MG PO, (Reported) Cranberry Extract (Cranberry), 125 MG PO, (Reported) Triamterene (Triamterene), 50 MG PO, (Reported) Yeast (S. Boulardii)(S. Cerevi (Probiotic), 250 MG PO, (Reported) Discharge Statement: "Patient was advised to return to the ER or call 911 if any headaches, dizziness, shortness of breath, chest pain, abdominal pain, bleeding, fevers, or worsening of medical condition. Patient was counseled about treatment plan, medications, possible side effects, patientverbalized understanding. All questions were answered to the best of my ability. This discharge took greater then 30 minutes in planning, reviewing documentation, counseling the patient, and discussing with other team members." ASSESSMENT ASSESSMENT Assessment Left hip osteoarthritis SMITA MART NP Oct 19, 2024 07:51
[2024-10-19] MEDS: KETOROLAC TROMETH 30 MG/ML 1ML VIAL IV ONE (10:58)
--- NOTE | 2024-10-19 14:07 | DVHPN2 ---
Subjective Patient is more awake alert, took few steps with the physical therapy today. Changes from previous H/P or p: No Changes Objective Vitals Vital Signs Date Time Temp Pulse Resp B/P (MAP) Pulse Ox O2 Delivery O2 Flow Rate FiO2 10/19/24 09:00 97.7 76 19 124/69 (87) 94 97.7 10/18/24 20:47 Room Air* 0 21 Intake/Output Intake and Output 10/19/24 07:00 Intake Total 290 ml Output Total 725 ml Balance -435 ml Intake IV Total 290 ml Output Urine Total 725 ml Exam HEENT pupils are reactive Neck is supple CV is S1-S2 regular rate and rhythm Respiratory diminished breath sounds bases GI positive bowel sound Extremity no edema [employer] no motor deficit Medications Current Medications Medications Dose Ordered Sig/Leyla Route Start Time Stop Time Status Last Admin Dose Admin Cefepime HCl 50 ml @ 12.5 mls/hr DAILY IV 10/18/24 10:00 10/19/24 09:35 12.5 MLS/HR Lactated Ringer's 1,000 ml @ 100 mls/hr Q10H IV 10/18/24 07:30 10/18/24 17:29 100 MLS/HR Sodium Chloride 10 ml Q8HR IV 10/18/24 14:00 10/19/24 05:10 10 ML Acetaminophen/ Hydrocodone Bitart 1 tab Q4HP PRN PO 10/18/24 07:30 Hydromorphone HCl 1 mg Q2HP PRN IV 10/18/24 07:30 Ondansetron HCl 4 mg Q6HP PRN IV 10/18/24 07:30 Docusate Sodium 100 mg Q12HR PO 10/18/24 10:00 10/19/24 09:35 100 MG Nitroglycerin 0.4 mg Q5MINP PRN SL 10/18/24 07:30 Morphine Sulfate 2 mg Q30M PRN IV 10/18/24 07:30 Aspirin 81 mg BID PO 10/19/24 10:00 10/19/24 09:35 81 MG Diphenhydramine HCl 25 mg Q4HP PRN IV 10/18/24 10:00 Laboratory Results Laboratory Tests 10/19/24 05:28 Chemistry Test 10/19/24 05:28 Albumin 3.6 g/dL (3.2-4.8) Calcium Level 8.7 mg/dL (8.7-10.4) Total Protein 6.2 g/dL (5.7-8.2) Cardiac Markers Test 10/18/24 21:00 B-Type Natriuretic Peptide 146.19 pg/mL (0-100) LFT Test 10/19/24 05:28 Alanine Aminotransferase (ALT) 129 U/L (7-40) H Alkaline Phosphatase 139 U/L (46-116) H Aspartate Amino Transferase (AST) 153 U/L (13-40) H Total Bilirubin 0.5 mg/dL (0.2-1.0) Urinalysis Test 10/18/24 20:21 Urine Color Yellow (Yellow) Urine Clarity Turbid (Clear) H Urine pH 5.5 (5.0-9.0) Urine Specific [place] 1.024 (1.001-1.035) Urine Protein Trace (Negative) H Urine Ketones Trace (Negative) Urine Blood Negative /uL (Negative) Urine Nitrite Negative (Negative) Urine Bilirubin Negative (Negative) Urine Urobilinogen Normal mg/dL (Negative) Urine Leukocyte Esterase 1+ /uL (Negative) Urine RBC 1 /hpf (0 - 4) Urine Microscopic WBC 21 /HPF (0-5) H Urine Squamous Epithelial Cells Few /hpf (<5) Urine Bacteria Few /hpf (None Seen) H Urine Glucose Normal mg/dL (Normal) Microbiology Microbiology Date/Time Source Procedure Growth Status 10/19/24 06:30 Nose MRSA Screen - Final Complete Assessment/Plan Assessment/Plan 74-year-old female with a known history of COPD, chronic tobacco use disorder, hypertension, anxiety and depression disorder who was brought in by Orthopedics for elective surgery. 1. Hypertension controlled 2. Acute hypoxic respiratory failure currently on face mask postop 3. COPD not in exacerbation 4. Chronic tobacco use disorder 5. Anxiety and depression disorder 6. Left hip degenerative joint disease status post total hip arthroplasty -O2 supplementation as needed, med nebs p.r.n., DVT GI prophylaxis -physical therapy evaluation and treatment, discharge plan per Orthopedics. Plan discussed with: Patient Date of Service: Oct 19, 2024 Billing Provider: MATY NAGY MD Common Visit Codes: NOT BILLABLE MATY NAGY MD Oct 19, 2024 14:07
[2024-10-19] MEDS: HYDROcodone-ACET 5/325MG TAB PO PRN (21:56)
[2024-10-19] MEDS: CALCIUM CARB 500 MG CHEW TAB PO PRN (22:50)
[2024-10-19] MEDS: PANTOPRAZOLE 40 MG/10 ML VIAL INJ IV ONE (22:50)
[2024-10-20] VITALS (8 sets, daily range): BP systolic 117–153; BP diastolic 51–74; PULSE 60–101; RESP 16–22; TEMP 97.2–98.9; O2SAT 90–95
[2024-10-20 06:36] LABS: Calcium 8.8 mg/dL (8.7-10.4); Chloride 104 mmol/L (98-107); Potassium 4.3 mmol/L (3.5-5.1); Sodium 137 mmol/L (136-145)
[2024-10-20 06:37] LABS: Anion Gap 7 (5-15); Carbon Dioxide 26 mmol/L (20-31)
[2024-10-20 06:42] LABS: BUN/Creatinine Ratio 23.5 (10.0-20.0)
[2024-10-20 06:58] LABS: Blood Urea Nitrogen 27 mg/dL (9-23); Glucose 107 mg/dL (74-106); Hematocrit 37.0 % (36.0-46.0); Hemoglobin 12.6 g/dL (12.2-16.2); Mean Corpuscular Hemoglobin 31.9 pg (28.0-32.0); Mean Corpuscular Volume 93.9 fL (80.0-100.0); Nucleated Red Blood Cells % 0.2 %
[2024-10-20] MEDS: PANTOPRAZOLE 40 MG/10 ML VIAL INJ IV SCH (11:34)
--- NOTE | 2024-10-20 15:35 | DVHPN2 ---
Subjective Patient denies any complaints, currently licensed clinical social worker has been working on arrangement to [facility] facility. To be noted patient's vitals noted to be not choice anymore as patient is hospice still although she revoked it. Changes from previous H/P or p: No Changes Objective Vitals Vital Signs Date Time Temp Pulse Resp B/P (MAP) Pulse Ox O2 Delivery O2 Flow Rate FiO2 10/20/24 12:49 97.6 101 22 124/67 (86) 90 97.6 10/20/24 07:30 Room Air* 0 21 Intake/Output Intake and Output 10/20/24 07:00 Intake Total 1500 ml Output Total 4300 ml Balance -2800 ml Intake Oral 1500 ml Output Urine Total 4300 ml Exam HEENT pupils are reactive Neck is supple CV is S1-S2 regular rate and rhythm Respiratory diminished breath sounds bases GI positive bowel sound Extremity no edema STATE PILOT no motor deficit Medications Current Medications Medications Dose Ordered Sig/Leyla Route Start Time Stop Time Status Last Admin Dose Admin Cefepime HCl 50 ml @ 12.5 mls/hr DAILY IV 10/18/24 10:00 10/20/24 11:35 12.5 MLS/HR Lactated Ringer's 1,000 ml @ 100 mls/hr Q10H IV 10/18/24 07:30 10/18/24 17:29 100 MLS/HR Sodium Chloride 10 ml Q8HR IV 10/18/24 14:00 10/20/24 11:35 10 ML Acetaminophen/ Hydrocodone Bitart 1 tab Q4HP PRN PO 10/18/24 07:30 10/20/24 11:34 1 TAB Hydromorphone HCl 1 mg Q2HP PRN IV 10/18/24 07:30 Ondansetron HCl 4 mg Q6HP PRN IV 10/18/24 07:30 Docusate Sodium 100 mg Q12HR PO 10/18/24 10:00 10/20/24 11:34 100 MG Nitroglycerin 0.4 mg Q5MINP PRN SL 10/18/24 07:30 Morphine Sulfate 2 mg Q30M PRN IV 10/18/24 07:30 Aspirin 81 mg BID PO 10/19/24 10:00 10/20/24 11:34 81 MG Diphenhydramine HCl 25 mg Q4HP PRN IV 10/18/24 10:00 Pantoprazole Sodium 40 mg DAILY IV 10/20/24 10:00 10/20/24 11:34 40 MG Calcium Carbonate 500 mg QIDPRN PRN PO 10/19/24 22:45 10/19/24 22:50 500 MG Laboratory Results Laboratory Tests 10/20/24 05:42 Chemistry Test 10/20/24 05:42 Calcium Level 8.8 mg/dL (8.7-10.4) Urinalysis Test 10/18/24 20:21 Urine Color Yellow (Yellow) Urine Clarity Turbid (Clear) H Urine pH 5.5 (5.0-9.0) Urine Specific [place] 1.024 (1.001-1.035) Urine Protein Trace (Negative) H Urine Ketones Trace (Negative) Urine Blood Negative /uL (Negative) Urine Nitrite Negative (Negative) Urine Bilirubin Negative (Negative) Urine Urobilinogen Normal mg/dL (Negative) Urine Leukocyte Esterase 1+ /uL (Negative) Urine RBC 1 /hpf (0 - 4) Urine Microscopic WBC 21 /HPF (0-5) H Urine Squamous Epithelial Cells Few /hpf (<5) Urine Bacteria Few /hpf (None Seen) H Urine Glucose Normal mg/dL (Normal) Microbiology Microbiology Date/Time Source Procedure Growth Status 10/19/24 06:30 Nose MRSA Screen - Final Complete Assessment/Plan Assessment/Plan 74-year-old female with a known history of COPD, chronic tobacco use disorder, hypertension, anxiety and depression disorder who was brought in by Orthopedics for elective surgery. 1. Hypertension controlled 2. Acute hypoxic respiratory failure currently off of oxygen 3. COPD not in exacerbation 4. Chronic tobacco use disorder 5. Anxiety and depression disorder 6. Left hip degenerative joint disease status post total hip arthroplasty -O2 supplementation as needed, med nebs p.r.n., DVT GI prophylaxis -physical therapy evaluation and treatment, discharge plan per Orthopedics. -licensed clinical social worker consultation for [facility], [facility] want follow up with the patient as patient is hospice. Plan discussed with: Patient Date of Service: Oct 20, 2024 Billing Provider: MATY NAGY MD Common Visit Codes: [id number] INP/OBS CARE(MOD) MATY NAGY MD Oct 20, 2024 15:35
[2024-10-21 01:00] VITALS: BP 113/55; PULSE 90; RESP 17; TEMP 99.1; O2SAT 92
[2024-10-21 05:00] VITALS: BP 139/80; PULSE 80; RESP 17; TEMP 98.8; O2SAT 95
[2024-10-21 06:28] LABS: Hematocrit 39.2 % (36.0-46.0); Hemoglobin 13.1 g/dL (12.2-16.2)
[2024-10-21 07:03] LABS: Albumin 3.6 g/dL (3.2-4.8); Anion Gap 9 (5-15); BUN/Creatinine Ratio 24.3 (10.0-20.0); Bilirubin, Total 0.5 mg/dL (0.2-1.0); Calcium 8.9 mg/dL (8.7-10.4); Carbon Dioxide 26 mmol/L (20-31); Chloride 105 mmol/L (98-107); Potassium 3.8 mmol/L (3.5-5.1); Sodium 140 mmol/L (136-145); Total Protein 6.5 g/dL (5.7-8.2)
[2024-10-21 07:12] LABS: Alanine Aminotransferase 47 U/L (7-40); Alkaline Phosphatase 141 U/L (46-116); Blood Urea Nitrogen 25 mg/dL (9-23); Glucose 110 mg/dL (74-106)
[2024-10-21 08:00] VITALS: PULSE 18; PULSE 88; RESP 17; O2SAT 92
[2024-10-21] MEDS: METOCLOPRAMIDE HCL 5MG/ml INJ 2ml VIAL IV ONE (08:10)
[2024-10-21 09:55] VITALS: BP 127/71; PULSE 88; RESP 17; TEMP 98.9; O2SAT 92
[2024-10-21 14:36] VITALS: BP 123/53; PULSE 82; RESP 17; TEMP 98.8; O2SAT 93
[2024-10-21 15:06] VITALS: BP 135/60; PULSE 76; RESP 18; TEMP 97.3; O2SAT 98
--- NOTE | 2024-10-21 15:16 | DVHPN2 ---
Progress Note Date Seen: Oct 21, 2024 Medical Necessity Reason Pt with a Central, PICC or Fol: No Subjective Patient reports: No new complaints Review of Systems: HEENT:Normal, CVS:Normal, RESPIRATORY:Normal, GI:Normal, :Normal, MSK:Normal, NEURO:Normal Objective vital signs Vital Sign Date Time Temp Pulse Resp B/P (MAP) Pulse Ox O2 Delivery O2 Flow Rate FiO2 10/21/24 14:36 98.8 82 17 123/53 (76) 93 98.8 10/21/24 08:00 Nasal Cannula* 1 24 Total Intake and Output 10/20/24 10/20/24 10/21/24 15:00 23:00 07:00 Intake Total 350 ml 300 ml Balance 350 ml 300 ml medications Current Medications Medications Dose Ordered Sig/Leyla Route Start Time Stop Time Status Last Admin Dose Admin Cefepime HCl 50 ml @ 12.5 mls/hr DAILY IV 10/18/24 10:00 10/21/24 09:27 12.5 MLS/HR Lactated Ringer's 1,000 ml @ 100 mls/hr Q10H IV 10/18/24 07:30 10/18/24 17:29 100 MLS/HR Sodium Chloride 10 ml Q8HR IV 10/18/24 14:00 10/21/24 05:55 10 ML Acetaminophen/ Hydrocodone Bitart 1 tab Q4HP PRN PO 10/18/24 07:30 10/21/24 09:28 1 TAB Hydromorphone HCl 1 mg Q2HP PRN IV 10/18/24 07:30 Ondansetron HCl 4 mg Q6HP PRN IV 10/18/24 07:30 Docusate Sodium 100 mg Q12HR PO 10/18/24 10:00 10/21/24 09:27 100 MG Nitroglycerin 0.4 mg Q5MINP PRN SL 10/18/24 07:30 Morphine Sulfate 2 mg Q30M PRN IV 10/18/24 07:30 Aspirin 81 mg BID PO 10/19/24 10:00 10/21/24 09:27 81 MG Diphenhydramine HCl 25 mg Q4HP PRN IV 10/18/24 10:00 Pantoprazole Sodium 40 mg DAILY IV 10/20/24 10:00 10/21/24 09:27 40 MG Calcium Carbonate 500 mg QIDPRN PRN PO 10/19/24 22:45 10/19/24 22:50 500 MG Examination: GENERAL:Normal, HEENT:Normal, NECK:Normal, LUNGS:Normal, CVS:Normal, ABDOMEN:Normal, MSK:Normal, MSK:Abnormal (LEFT HIP DRESSING), SKIN:Normal, NEURO:Normal, :Normal laboratory and microbiology Laboratory Tests 10/21/24 05:36 10/20/24 05:42 Test 10/21/24 05:36 Range/Units Serum Glucose 110 H 74-106 mg/dL Microbiology Date/Time Source Procedure Growth Status 10/19/24 06:30 Nose MRSA Screen - Final Complete Problem List/Assessment/Plan Problem List/Assessment/Plan #1 copd #2 htn #3 s/p left hip surgery #4 obesity #5 transaminitis:improving advance care planning- full code- time spent 18 mins Plan discussed with: Patient Date of Service: Oct 21, 2024 Billing Provider: REMEDIOS MEDINA MD Common Visit Codes: [id number] INP/OBS CARE(HIGH) Secondary Visit Codes: [id number] CARE PLAN 30 MINUTES REMEDIOS MEDINA MD Oct 21, 2024 15:16
== END 2024-10-21 16:00 | DRG 470 ==
LOC: SUR 06:32 → OVERFLOW 07:25 → TELE-WESTW 20:45
PROVIDERS: ADMIT Orthopaedic Surgery Adult Reconstructive Orthopaedic Surgery; ATTEND Internal Medicine
PROC: 8E0YXBZ Computer Assisted Procedure of Lower Extremity (ICD-10-PCS; 2024-10-18)
PROC: 0SRB0JZ Replacement of Left Hip Joint with Synthetic Substitute, Open Approach (ICD-10-PCS; principal; 2024-10-18 08:03)
DX: M16.12 Unilateral primary osteoarthritis, left hip (principal); I10 Essential (primary) hypertension; J44.9 Chronic obstructive pulmonary disease, unspecified; F32.A Depression, unspecified; E66.9 Obesity, unspecified; Z68.30 Body mass index [BMI] 30.0-30.9, adult; F41.9 Anxiety disorder, unspecified; F17.200 Nicotine dependence, unspecified, uncomplicated; R74.01 Elevation of levels of liver transaminase levels
CPT/HCPCS: 36415; 72170; 80048; 80053; 81001; 83880; 85014; 85018; 85025; 86850; 86900; 86901; 87081; 97110; 97116; 97163; G0378; J0131; J1885; J2250; J2405; J2470; J2704; J3490